=== PATIENT | male | born 1985 | race Caucasian/White ===

== ENCOUNTER 2018-10-13 14:00 | Emergency (ER) | payer OTHER ==
[~2018-10-13] VITALS: Ht 160 cm; Wt 74.9 kg
[2018-10-13 14:11] VITALS: BP 121/71
--- NOTE | 2018-10-13 14:15 | NUR ---
PATIENT PRESENTS TO ED WITH C/O SUPRAPUBIC PAIN WITH BLOOD WITHIN SEMEN X 1 WEEK ; NOW PAIN RADIATING TO LOWER BACK.--DENIES DYSURIA PT STATES HE WAS SEEN YESTERDAY IN [facility] ; INSTRUCTED TO F/U WITH PMD BUT PT STATES NO ANALGESIC WAS PRESCRIBED . DENIES N/V/D; SKIN IS PINK/WARM/DRY; AAOX4 WITH EVEN AND STEADY GAIT; LUNGS CLEAR BL; HR EVEN AND REGULAR; PT DENIES ANY FEVER, CP, SOB, OR COUGH AT THIS TIME; PATIENT STATES PAIN OF 5/10 AT THIS TIME; VSS; PATIENT POSITIONED FOR COMFORT; HOB ELEVATED; BEDRAILS UP X2; BED DOWN. ER MD MADE AWARE OF PT STATUS.
[2018-10-13] MEDS ORDERED: KETOROLAC 30 MG/ML VIAL IVP ONE (15:05)
[2018-10-13] MEDS ORDERED: NACL 0.9% 1,000 ML IV ONE (15:05)
[2018-10-13] MEDS ORDERED: LEVOFLOXACIN 500 MG/D5W PREMIX 100 ML IV ONE (15:05)
[2018-10-13 16:41] VITALS: BP 117/68
--- NOTE | 2018-10-13 16:41 | NUR ---
PATIENT DISCHARGED BY DR SHEN. RX OF CIPROFLOXACIN GIVEN
== END 2018-10-13 16:41 | disposition home or self-care (01) ==
LOC: MED 14:00
DX: N41.9 Inflammatory disease of prostate, unspecified (principal)
CPT/HCPCS: 96365; 96375; 99283; J1885; J1956; J7030

== ENCOUNTER 2019-02-23 11:33 | Emergency (ER) | payer OTHER ==
[~2019-02-23] VITALS: Ht 160 cm; Wt 76.7 kg
[2019-02-23 11:34] VITALS: BP 118/75
--- NOTE | 2019-02-23 11:47 | NUR ---
Patient ambulated to bed 1 at this time.
--- NOTE | 2019-02-23 11:51 | NUR ---
PT BIB SELF TO THE ED WITH THE CHIEF C/O COUGH FOR 10 DAYS. PT WAS SEEN BY DOCTOR IN CLINIC AND TAKING MEDS FOR COUGH W/O RELIEF. DENEIS ANY RECENT FEVER. NO BLOOD IN COUGH. LUNGS CLEAR. DENIES OTHER PROBLEM AT THIS TIME. DENIES ANY MEDICAL HX. AFEBRILE. VSS. ER AWARE.
--- NOTE | 2019-02-23 12:02 | NUR ---
Dr. Pang evaluating patient at this time.
--- NOTE | 2019-02-23 12:03 | NUR ---
PT BEING SEEN BY ER AT THIS TIME.
--- NOTE | 2019-02-23 12:49 | NUR ---
SWAB TAKEN BY LAB.
[2019-02-23 13:02] LABS: RED BLOOD CELL COUNT(AUTO) 4.33 MIL/uL (4.20-6.10); WHITE BLOOD COUNT (AUTO) 12.5 K/uL (4.8-10.8)
[2019-02-23 13:03] LABS: BASOPHILS % (AUTO) 0.4 % (0.0-2.0); EOSINOPHILS # (AUTO) 0.2 K/uL (0-0.4); EOSINOPHILS % (AUTO) 1.2 % (0.0-4.0); HEMATOCRIT 39.7 % (36-52); HEMOGLOBIN 13.5 g/dL (12.0-18.0); LYMPHOCYTES # (AUTO) 1.8 K/uL (2.0-11.5); LYMPHOCYTES % (AUTO) 14.7 % (20.5-51.1); MEAN CORPUSCULAR HEMOGLOBIN 31 pg (27-31); MEAN CORPUSCULAR HGB CONC 34 g/dL (33-37); MEAN CORPUSCULAR VOLUME 91.6 fL (80-94); MONOCYTES % (AUTO) 8.4 % (1.7-9.3); NEUTROPHILS # (AUTO) 9.4 K/uL (1.8-7.7); NEUTROPHILS % (AUTO) 75.3 % (42.2-75.2); PLATELET COUNT (AUTO) 298 K/uL (140-450); RED CELL DISTRIBUTION WIDTH 13.2 % (11.6-13.7)
[2019-02-23 13:15] LABS: ANION GAP 14.8 (8-16); CREATININE 0.9 mg/dL (0.7-1.3); POTASSIUM 3.8 mmol/L (3.5-5.1)
--- NOTE | 2019-02-23 14:08 | NUR ---
NO SOB OR ACUTE RESPIRATORY DISTRESS NOTED. BREATHING NORMALLY.
[2019-02-23 15:04] VITALS: BP 115/71
--- NOTE | 2019-02-23 15:04 | NUR ---
Patient discharged with v/s stable. Written and verbal after care instructions given and explained. Patient verbalized understanding. Ambulatory with steady gait. All questions addressed prior to discharge. Advised to follow up with PMD.
== END 2019-02-23 15:04 | disposition home or self-care (01) ==
LOC: MED 11:33
DX: J06.9 Acute upper respiratory infection, unspecified (principal); I10 Essential (primary) hypertension; Z98.890 Other specified postprocedural states
CPT/HCPCS: 36415; 71046; 80048; 85025; 87081; 87804; 99284